=== PATIENT | male | born 1955 | race Caucasian/White ===

== ENCOUNTER 2017-10-26 23:25 | Inpatient (IN) | payer OTHER ==
[~2017-10-26] VITALS: Ht 175.3 cm; Wt 96.2 kg
[2017-10-26] MEDS ORDERED: LISI-170 PO (23:36)
[2017-10-26] MEDS ORDERED: ESOM40CA PO (23:36)
[2017-10-26 23:51] LABS: BASOPHILS # (AUTO) 0.04 x10^3/uL (0-0.1); BASOPHILS % (AUTO) 1 % (0-1); EOSINOPHILS # (AUTO) 0.12 x10^3/uL (0-0.4); EOSINOPHILS % (AUTO) 2 % (1-7); LYMPHOCYTES # (AUTO) 2.06 x10^3/uL (1-3.4); LYMPHOCYTES % (AUTO) 34 % (22-44); MD NO; MEAN CORPUSCULAR HEMOGLOBIN 31.5 pg (27.5-34.5); MEAN CORPUSCULAR HGB CONC 34.3 g/dL (33.2-36.2); MEAN CORPUSCULAR VOLUME 91.7 fL (81-97); MEAN PLATELET VOLUME 7.4 fL (7.4-10.4); MONOCYTES # (AUTO) 0.37 x10^3/uL (0.2-0.8); MONOCYTES % (AUTO) 6 % (2-9); NEUTROPHILS # (AUTO) 3.47 x10^3/uL (1.8-6.8); NEUTROPHILS % (AUTO) 57 % (42-75); PLATELET COUNT 199 x10^3/uL (130-400); RED BLOOD COUNT 5.01 x10^6/uL (4.38-5.82)
[2017-10-27] MEDS ORDERED: SODIUM CHLORIDE FLUSH 10ML SYR IVF ONE
[2017-10-27 00:03] LABS: ALBUMIN 3.6 g/dL (3.4-5.0); ANION GAP 6 mmol/L (5-15); CALCIUM 8.6 mg/dL (8.5-10.1); CHLORIDE 108 mmol/L (98-107); CREATININE 1.55 mg/dL (0.7-1.3)
[2017-10-27 00:07] LABS: TROPONIN I < 0.015 ng/mL (0.000-0.045)
[2017-10-27] MEDS ORDERED: SODIUM CHLORIDE 0.9% 1,000 ML IV ONE (00:57)
[2017-10-27] MEDS ORDERED: ONDANSETRON 2MG/ML, 2ML IVPush PRN ×2 (01:00→06:30)
[2017-10-27 03:42] VITALS: BP 127/79
[2017-10-27 06:30] VITALS: BP 126/74
[2017-10-27] MEDS ORDERED: ACETAMINOPHEN 325 MG TABLET PO PRN (06:30)
[2017-10-27] MEDS ORDERED: PROMETHAZINE 25 MG/ML, 1ML IM PRN (06:30)
[2017-10-27] MEDS ORDERED: DOCUSATE 100 MG CAPSULE PO PRN (06:30)
[2017-10-27] MEDS ORDERED: ONDANSETRON ODT 4 MG PO PRN (06:30)
[2017-10-27] MEDS ORDERED: BISACODYL 10 MG SUPP PR PRN (06:30)
[2017-10-27] MEDS ORDERED: SODIUM CHLORIDE 0.9% 1,000 ML IV SCH (07:00)
[2017-10-27 08:20] LABS: BASOPHILS # (AUTO) 0.02 x10^3/uL (0-0.1); BASOPHILS % (AUTO) 0 % (0-1); EOSINOPHILS # (AUTO) 0.11 x10^3/uL (0-0.4); EOSINOPHILS % (AUTO) 2 % (1-7); LYMPHOCYTES # (AUTO) 1.78 x10^3/uL (1-3.4); LYMPHOCYTES % (AUTO) 28 % (22-44); MD NO; MEAN CORPUSCULAR HGB CONC 33.9 g/dL (33.2-36.2); MEAN CORPUSCULAR VOLUME 91.7 fL (81-97); MEAN PLATELET VOLUME 7.4 fL (7.4-10.4); MONOCYTES # (AUTO) 0.38 x10^3/uL (0.2-0.8); MONOCYTES % (AUTO) 6 % (2-9); NEUTROPHILS # (AUTO) 4.09 x10^3/uL (1.8-6.8); NEUTROPHILS % (AUTO) 64 % (42-75); PLATELET COUNT 204 x10^3/uL (130-400); RED BLOOD COUNT 5.05 x10^6/uL (4.38-5.82); RED CELL DISTRIBUTION WIDTH 12.9 % (9.4-14.8)
[2017-10-27 08:32] LABS: ALBUMIN 3.5 g/dL (3.4-5.0); ANION GAP 4 mmol/L (5-15); CALCIUM 8.5 mg/dL (8.5-10.1); CHLORIDE 111 mmol/L (98-107)
[2017-10-27 08:42] LABS: ALANINE AMINOTRANSFERASE 36 U/L (12-78); ALKALINE PHOSPHATASE 55 U/L (45-117); BILIRUBIN,TOTAL 0.7 mg/dL (0.2-1.0); CHOL/HDL RATIO 5.5; CHOLESTEROL, TOTAL 143 mg/dL (140-239); CREATININE 1.39 mg/dL (0.7-1.3); HDL CHOL % 18 % (26-37); HDL CHOLESTEROL (DIRECT) 26 mg/dL (40-60); LDL CHOLESTEROL,CALCULATED 91 mg/dL (54-169); LDL/HDL RATIO 3.5 (0.5-3.0); THYROID STIMULATING HORMONE 0.654 mIU/L (0.358-3.740); TOTAL PROTEIN 6.8 g/dL (6.4-8.2); TRIGLYCERIDES 131 mg/dL (50-200); VLDL CHOLESTEROL 26 mg/dL (0-25)
[2017-10-27 08:47] LABS: HEMOGLOBIN A1C 5.8 % (4.2-6.3)
[2017-10-27] MEDS: SODIUM CHLORIDE 0.9% 1,000 ML IV SCH ×3 (08:54→21:42)
[2017-10-27] MEDS: ENOXAPARIN 40 MG/0.4 ML SQ SCH (08:54)
[2017-10-27] MEDS: PANTOPROZOLE 40MG TABLET PO SCH (08:54)
[2017-10-27] MEDS: ASPIRIN 325 MG TABLET EC PO SCH (08:55)
[2017-10-27] MEDS: METOPROLOL TARTRATE 25 MG TABLET PO SCH ×2 (08:55→20:00)
[2017-10-27 13:33] LABS: TROPONIN I < 0.015 ng/mL (0.000-0.045)
[2017-10-27 15:07] VITALS: BP 110/76
[2017-10-27 19:43] VITALS: BP 114/68
[2017-10-28 02:34] VITALS: BP 150/60
[2017-10-28 02:42] LABS: MICROSCOPIC NOT IND
[2017-10-28 02:45] LABS: CULTURE INDICATED? NO
[2017-10-28] MEDS: SODIUM CHLORIDE 0.9% 1,000 ML IV SCH (05:44)
[2017-10-28] MEDS: ASPIRIN 325 MG TABLET EC PO SCH (05:44)
[2017-10-28 05:50] LABS: ANION GAP 6 mmol/L (5-15); CALCIUM 7.9 mg/dL (8.5-10.1); CHLORIDE 113 mmol/L (98-107)
[2017-10-28 05:52] LABS: CREATININE 1.39 mg/dL (0.7-1.3)
[2017-10-28 06:17] LABS: HEMOGLOBIN A1C 5.7 % (4.2-6.3)
[2017-10-28] MEDS: METOPROLOL TARTRATE 25 MG TABLET PO SCH (07:30)
[2017-10-28] MEDS: PANTOPROZOLE 40MG TABLET PO SCH (07:30)
[2017-10-28] MEDS: ENOXAPARIN 40 MG/0.4 ML SQ SCH (07:30)
[2017-10-28 07:33] VITALS: BP 120/71
[2017-10-28] MEDS ORDERED: REGADENOSON 0.4 MG/5 ML SYRINGE ONE (08:29)
[2017-10-28 13:17] VITALS: BP 127/79
[2017-10-28] MEDS ORDERED: HYDR-3342 PO (15:00)
[2017-10-28] MEDS ORDERED: METO25TA35 PO (15:00)
[2017-10-28] MEDS ORDERED: ASPI-650 PO (15:01)
[2017-10-28] MEDS ORDERED: SIMV40TA PO (15:03)
== END 2017-10-28 18:33 | disposition home or self-care (01) | DRG 682 ==
LOC: ED 23:50 → EDIP 10-27 00:58 → 5SO 10-27 01:34
PROVIDERS: ADMIT Surgery; ATTEND Internal Medicine
DX: N17.9 Acute kidney failure, unspecified (principal); G93.40 Encephalopathy, unspecified; N18.3 Chronic kidney disease, stage 3 (moderate); E78.5 Hyperlipidemia, unspecified; I48.2 Chronic atrial fibrillation; I12.9 Hypertensive chronic kidney disease with stage 1 through stage 4 chronic kidney disease, or unspecified chronic kidney disease; I48.0 Paroxysmal atrial fibrillation; K21.9 Gastro-esophageal reflux disease without esophagitis; I45.10 Unspecified right bundle-branch block; R73.9 Hyperglycemia, unspecified; Z88.0 Allergy status to penicillin; Z79.01 Long term (current) use of anticoagulants
CPT/HCPCS: 36415; 70450; 78452; 80048; 80053; 80061; 81003; 82040; 83036; 83735; 84100; 84443; 84484; 85025; 93005; 93017; 93306; 93880; 99285; J1650; J2785; A9502; C9898; J7030

== ENCOUNTER 2017-11-07 09:02 | Day surgery (SDC) | payer OTHER ==
[~2017-11-07] VITALS: Ht 175.3 cm; Wt 93.2 kg
[~2017-11-07 09:02] MED LIST: ASPI-650 PO; ESOM40CA PO; HYDR-3342 PO; LISI-170 PO; METO25TA35 PO; SIMV40TA PO
[2017-11-07] MEDS ORDERED: LIDOCAINE/PF 1%-EPI 1:200K, 30 ML ONE (09:23)
[2017-11-07 09:26] VITALS: BP 134/70
[2017-11-07] MEDS ORDERED: METOPROLOL TARTRATE 25 MG TABLET PO SCH (18:00)
[2017-11-07] MEDS ORDERED: SIMVASTATIN 40 MG TABLET PO SCH (21:00)
[2017-11-08] MEDS ORDERED: ASPIRIN 325 MG TABLET EC PO SCH (06:00)
[2017-11-08] MEDS ORDERED: TEMPLATE NON-FORMULARY MED. (Esomeprazole Magnesium** (Nexium**) 40 MG) PO SCH (09:00)
== END 2017-11-07 11:00 | disposition home or self-care (01) ==
LOC: CACL 09:02
PROVIDERS: ATTEND Internal Medicine Cardiovascular Disease
DX: R55 Syncope and collapse (principal); Z88.0 Allergy status to penicillin; I48.91 Unspecified atrial fibrillation; Z79.899 Other long term (current) drug therapy; I45.19 Other right bundle-branch block
CPT/HCPCS: 33282; C1764; J3490

== ENCOUNTER → 2018-07-22 | Outpatient (CLI) | payer OTHER | END | disposition home or self-care (01) | LOC: RAD 10:55 | PROVIDERS: ATTEND Family Medicine | DX: R06.00 Dyspnea, unspecified (principal) | CPT/HCPCS: 71046 ==

== ENCOUNTER → 2018-08-17 | Outpatient (CLI) | payer OTHER ==
[~2018-08-17] MED LIST changes: +FENTANYL PF 100 MCG/2ML ONE; +FLUMAZENIL 0.1 MG/1 ML, 5ML ONE; +MIDAZOLAM 1 MG/ML, 5ML ONE; +NALOXONE 1 MG/ML, 2ML ONE
== END | disposition home or self-care (01) ==
LOC: RAD 06:37
PROVIDERS: ATTEND Nurse Practitioner
DX: M47.896 Other spondylosis, lumbar region (principal); M47.892 Other spondylosis, cervical region; M48.061 Spinal stenosis, lumbar region without neurogenic claudication; M51.26 Other intervertebral disc displacement, lumbar region; M48.02 Spinal stenosis, cervical region; G95.89 Other specified diseases of spinal cord
CPT/HCPCS: 72050; 72110; 72141; 72148; 99156; 99157; J2250; J3010; J2310

== ENCOUNTER → 2018-10-01 | Outpatient (CLI) | payer OTHER ==
[~2018-10-01] MED LIST changes: -FENTANYL PF 100 MCG/2ML ONE; -FLUMAZENIL 0.1 MG/1 ML, 5ML ONE; -MIDAZOLAM 1 MG/ML, 5ML ONE; -NALOXONE 1 MG/ML, 2ML ONE
== END | disposition home or self-care (01) ==
LOC: CFH 15:03
PROVIDERS: ATTEND Neurological Surgery
DX: M51.36 Other intervertebral disc degeneration, lumbar region (principal); M43.23 Fusion of spine, cervicothoracic region
CPT/HCPCS: 72082; 72131

== ENCOUNTER → 2018-10-14 | Outpatient (CLI) | payer OTHER ==
[~2018-10-14] MED LIST changes: +FENTANYL PF 100 MCG/2ML ONE; +FLUMAZENIL 0.1 MG/1 ML, 5ML ONE; +MIDAZOLAM 1 MG/ML, 5ML ONE; +NALOXONE 1 MG/ML, 2ML ONE
== END | disposition home or self-care (01) ==
LOC: RAD 08:10
PROVIDERS: ATTEND Neurological Surgery
DX: M51.34 Other intervertebral disc degeneration, thoracic region (principal); M48.04 Spinal stenosis, thoracic region
CPT/HCPCS: 72128; 72146; 99156; 99157; J2250; J3010; J2310

== ENCOUNTER → 2019-01-06 | Outpatient (CLI) | payer OTHER ==
[~2019-01-06] MED LIST changes: -FENTANYL PF 100 MCG/2ML ONE; -FLUMAZENIL 0.1 MG/1 ML, 5ML ONE; -MIDAZOLAM 1 MG/ML, 5ML ONE; -NALOXONE 1 MG/ML, 2ML ONE
== END | disposition home or self-care (01) ==
LOC: CFH 11:18
PROVIDERS: ATTEND Family Medicine
DX: M81.0 Age-related osteoporosis without current pathological fracture (principal); Z88.0 Allergy status to penicillin
CPT/HCPCS: 77080

== ENCOUNTER 2019-04-18 20:09 | Emergency (ER) | payer OTHER ==
[~2019-04-18] VITALS: Ht 175.3 cm; Wt 100.0 kg
[2019-04-18] MEDS ORDERED: LISI-167 PO (20:18)
[2019-04-18] MEDS ORDERED: RIVA20TA PO (20:18)
--- NOTE | 2019-04-18 20:20 | NUR ---
PT TO ED FOR NEAR SYNCOPAL EPISODE WHILE EATING DINNER FOLLOWED BY VOMITING. PT DENIES NAUSEA AND CP AT THIS TIME. PT CONNECTED TO MONITORS. VSS. IV ESTABLISHED EN ROUTE. AWAITING EDMD ASSESSMENT.
[2019-04-18] MEDS ORDERED: ONDANSETRON 2MG/ML, 2ML ONE (20:47)
--- NOTE | 2019-04-18 20:50 | NUR ---
PT RESTING IN ROOM WITH AT BS. VSS. PT MEDICATED PER MAR. NO NEEDS EXPRESSED. CALL LIGHT WITHIN REACH. AWAITING CXR AND LABS.
[2019-04-18] MEDS ORDERED: SODIUM CHLORIDE 0.9% 1,000ML IVBOLUS ONE (21:00)
[2019-04-18] MEDS ORDERED: ONDANSETRON 2MG/ML, 2ML IVPush ONE (21:00)
[2019-04-18 21:12] LABS: BASOPHILS # (AUTO) 0.06 x10^3/uL (0-0.1); BASOPHILS % (AUTO) 1 % (0-1); EOSINOPHILS % (AUTO) 2 % (1-7); LYMPHOCYTES # (AUTO) 1.66 x10^3/uL (1-3.4); LYMPHOCYTES % (AUTO) 28 % (22-44); MD NO; MEAN CORPUSCULAR HGB CONC 33.4 g/dL (33.2-36.2); MEAN CORPUSCULAR VOLUME 95.7 fL (81-97); MEAN PLATELET VOLUME 7.4 fL (7.4-10.4); MONOCYTES # (AUTO) 0.39 x10^3/uL (0.2-0.8); MONOCYTES % (AUTO) 7 % (2-9); NEUTROPHILS # (AUTO) 3.67 x10^3/uL (1.8-6.8); NEUTROPHILS % (AUTO) 62 % (42-75); PLATELET COUNT 186 x10^3/uL (130-400); RED BLOOD COUNT 4.48 x10^6/uL (4.38-5.82); RED CELL DISTRIBUTION WIDTH 13.1 % (9.4-14.8)
[2019-04-18 21:22] LABS: ALBUMIN 3.4 g/dL (3.4-5.0); ANION GAP 2 mmol/L (5-15); CALCIUM 8.2 mg/dL (8.5-10.1); CHLORIDE 112 mmol/L (98-107); CREATININE 1.89 mg/dL (0.7-1.3)
[2019-04-18 21:25] LABS: TROPONIN I < 0.015 ng/mL (0.000-0.045)
--- NOTE | 2019-04-18 21:30 | NUR ---
all results back at this time. chart up for recheck.
[2019-04-18 22:04] VITALS: BP 125/51
--- NOTE | 2019-04-18 22:05 | NUR ---
PT RESTING IN ROOM WITH AT BS. VSS. NO NEEDS EXPRESSED. CALL LIGHT WITHIN REACH. REPORT TO TONEY CASTELLANO.
--- NOTE | 2019-04-18 22:15 | NUR ---
PT AMBULATED IN HALLWAY, DENIES ANY DIZZYNESS OR NAUSEA AT THIS TIME.
== END 2019-04-18 23:11 | disposition home or self-care (01) ==
LOC: ED 21:18
DX: R55 Syncope and collapse (principal); R11.10 Vomiting, unspecified; I12.9 Hypertensive chronic kidney disease with stage 1 through stage 4 chronic kidney disease, or unspecified chronic kidney disease; N18.3 Chronic kidney disease, stage 3 (moderate); I48.91 Unspecified atrial fibrillation
CPT/HCPCS: 36415; 71045; 80048; 82040; 83880; 84484; 85025; 93005; 96361; 96374; 99284; J2405; J7030

== ENCOUNTER 2019-08-25 11:06 | Inpatient (IN) | payer OTHER ==
[~2019-08-25] VITALS: Ht 177.8 cm; Wt 96.9 kg
[~2019-08-25 11:06] MED LIST changes: +LISI-167 PO; +RIVA20TA PO
--- NOTE | 2019-08-25 11:29 | NUR ---
64YO MALE COMES IN FROM HOME. PT HAD SPINAL SX Jul. PT HAS BEEN HOME SINCE AUG 18. PT AND STATE HE WAS DOING WELL AT HOME WITH HEALING AND AMBULATING. HOWEVER THE PAST TWO DAYS PT HAS NOT HAD DESIRE TO EAT AND HAS BEEN FEELING SHORT OF BREATH WITH AN IMPENDING DOOM FEELING. PT HAS BEEN USING 2L NC DURING THE DAY BECAUSE HE FEELS LIKE HE IS NOT GETTING ENOUGH AIR. RA SAT 95%. PT AND REPORT NEEDING 7 TRANSFUSIONS AFTER HIS SX. PT CONNECTED TO ALL MONITORING AT BEDSIDE CALL LIGHT WITHIN REACH. PT EXPRESSES NO FURTHER NEEDS AT THIS TIME.
[2019-08-25 12:23] LABS: BASOPHILS # (AUTO) 0.04 x10^3/uL (0-0.1); BASOPHILS % (AUTO) 0 % (0-1); EOSINOPHILS # (AUTO) 0.02 x10^3/uL (0-0.4); EOSINOPHILS % (AUTO) 0 % (1-7); LYMPHOCYTES # (AUTO) 1.13 x10^3/uL (1-3.4); LYMPHOCYTES % (AUTO) 11 % (22-44); MD NO; MEAN CORPUSCULAR HEMOGLOBIN 30.4 pg (27.5-34.5); MEAN CORPUSCULAR HGB CONC 32.8 g/dL (33.2-36.2); MEAN CORPUSCULAR VOLUME 92.6 fL (81-97); MEAN PLATELET VOLUME 6.5 fL (7.4-10.4); MONOCYTES # (AUTO) 1.02 x10^3/uL (0.2-0.8); MONOCYTES % (AUTO) 10 % (2-9); NEUTROPHILS # (AUTO) 8.38 x10^3/uL (1.8-6.8); NEUTROPHILS % (AUTO) 79 % (42-75); PLATELET COUNT 444 x10^3/uL (130-400); RED BLOOD COUNT 3.94 x10^6/uL (4.38-5.82); RED CELL DISTRIBUTION WIDTH 14.1 % (9.4-14.8)
[2019-08-25 12:34] LABS: ALANINE AMINOTRANSFERASE 24 U/L (12-78); ALBUMIN 2.6 g/dL (3.4-5.0); CALCIUM 8.7 mg/dL (8.5-10.1); CREATININE 1.46 mg/dL (0.7-1.3)
[2019-08-25 12:36] LABS: ALKALINE PHOSPHATASE 125 U/L (45-117); BILIRUBIN,TOTAL 1.1 mg/dL (0.2-1.0); TOTAL PROTEIN 7.5 g/dL (6.4-8.2)
[2019-08-25 12:45] LABS: ANION GAP 7 mmol/L (5-15); CHLORIDE 106 mmol/L (98-107)
--- NOTE | 2019-08-25 12:55 | NUR ---
PT EDUCATED ON NEED FOR URINE SAMPLE. PT STATES HE WILL TRY FOR US SOON
--- NOTE | 2019-08-25 13:16 | NUR ---
URINE SENT TO LAB
[2019-08-25 13:27] LABS: MICROSCOPIC INDICATED
[2019-08-25 13:40] LABS: CULTURE INDICATED? NO
--- NOTE | 2019-08-25 13:52 | NUR ---
AT BEDSIDE TO REASSESS PT
--- NOTE | 2019-08-25 13:53 | NUR ---
PT CONTINUES TO HAVE COMPLAINT OF ABD DISCOMFORT, MD UPDATED, ADDITIONAL ORDERS FROM . IV STARTED FOR CT W/ CONTRAST
[2019-08-25] MEDS ORDERED: SODIUM CHLORIDE 0.9% 1,000ML IVBOLUS ONE (14:00)
[2019-08-25] MEDS ORDERED: ONDANSETRON 2MG/ML, 2ML IVPush ONE (14:00)
[2019-08-25] MEDS ORDERED: FAMOTIDINE 20 MG/2 ML IV ONE (14:00)
[2019-08-25] MEDS ORDERED: SODIUM CHLORIDE FLUSH 10ML SYR IVF ONE (14:00)
[2019-08-25] MEDS ORDERED: KETOROLAC 30 MG/1 ML IVPush ONE (14:00)
--- NOTE | 2019-08-25 14:18 | NUR ---
PT TO CT
[2019-08-25] MEDS ORDERED: ONDANSETRON 2MG/ML, 2ML ONE (14:20)
[2019-08-25] MEDS ORDERED: KETOROLAC 30 MG/1 ML ONE (14:20)
[2019-08-25] MEDS ORDERED: FAMOTIDINE 20 MG/2 ML ONE (14:21)
[2019-08-25] MEDS ORDERED: OMNIPAQUE 350 MG/ML, 100ML BOTTLE ONE (14:29)
[2019-08-25] MEDS ORDERED: MELA5LIQ PO (14:33)
[2019-08-25] MEDS ORDERED: CLIN300C8 PO (14:33)
[2019-08-25] MEDS ORDERED: METO50TA82 PO (14:33)
[2019-08-25] MEDS ORDERED: GABA800T5 PO (14:33)
[2019-08-25] MEDS ORDERED: LISI-167 PO (14:33)
[2019-08-25] MEDS ORDERED: TRIA10.8 NAS (14:33)
[2019-08-25] MEDS ORDERED: TAMS-11 PO (14:33)
--- NOTE | 2019-08-25 14:42 | NUR ---
PT MEDICATED PER MAR
--- NOTE | 2019-08-25 15:31 | NUR ---
HOSPITALIST AT BEDSIDE TO ADMIT PT
--- NOTE | 2019-08-25 15:36 | NUR ---
THROUGHPUT: [facility] ([facility]) DECLINED TRANSFER OF PT. EMAL SENT, PSN FAXED & PLACED IN FOLDER WITH FAX RECEIPT.
[2019-08-25] MEDS ORDERED: morphine SULFATE 10 MG/ML, 1ML IVPush PRN (16:00)
[2019-08-25] MEDS ORDERED: ONDANSETRON ODT 4 MG PO PRN (16:00)
[2019-08-25] MEDS ORDERED: PROMETHAZINE 25 MG/ML, 1ML IM PRN (16:00)
[2019-08-25] MEDS ORDERED: hydrALAzine 20 MG/ML, 1ML IVPush PRN (16:00)
[2019-08-25] MEDS ORDERED: TRAZODONE 50MG TABLET PO PRN (16:00)
--- NOTE | 2019-08-25 16:22 | NUR ---
BREAK RN: PT LAYING ON GURNEY. NO ACUTE DISTRESS NOTED. PORTABLE CXR COMPLETED. PT AWARE OF WAITING FOR ROOM ASSIGNMENT. NO NEEDS EXPRESSED AT THIS TIME.
--- NOTE | 2019-08-25 16:40 | NUR ---
REQUEST SENT TO PHARMACY FOR D5 .49NS
[2019-08-25] MEDS ORDERED: CLINDAMYCIN 300 MG CAPSULE ONE (16:43)
[2019-08-25] MEDS: CLINDAMYCIN 300 MG CAPSULE PO SCH ×2 (16:45→22:02)
--- NOTE | 2019-08-25 16:48 | NUR ---
PT MEDICATED PER DEC. PT REPOSITIONED SELF AND STATES HE FEELS LESS PRESSURE IN HIS ABD AND FEELS A BIT BETTER THAN BEFORE.
--- NOTE | 2019-08-25 17:25 | NUR ---
REPORT CALLED TO MIRIAM ZIEGLER. ALL QUESTIONS ADDRESSED. PT READY FOR TRANSPORT
[2019-08-25] MEDS: D5%-0.45NACL+KCL 20MEQ 1,000 ML IV SCH (17:42)
[2019-08-25 18:30] VITALS: BP 126/77
[2019-08-25] MEDS: POLYETHYLENE GLYCOL 17 GM PACKET PO SCH (18:53)
[2019-08-25] MEDS: BACLOFEN 10 MG TABLET PO PRN (19:44)
[2019-08-25] MEDS: ACETAMINOPHEN 325 MG TABLET PO PRN (19:46)
[2019-08-25] MEDS: FLUTICASONE NASAL SPRAY 16GM NAS SCH (21:00)
[2019-08-25] MEDS: DOCUSATE 100 MG CAPSULE PO SCH (22:02)
[2019-08-25] MEDS: SIMVASTATIN 40 MG TABLET PO SCH (22:02)
[2019-08-25] MEDS: MELATONIN 5 MG TABLET PO SCH (22:02)
[2019-08-25] MEDS: FAMOTIDINE 20 MG TABLET PO SCH (22:02)
[2019-08-25] MEDS: METOPROLOL TARTRATE 50 MG TABLET PO SCH (22:03)
[2019-08-26 02:00] VITALS: BP 106/68
[2019-08-26] MEDS: D5%-0.45NACL+KCL 20MEQ 1,000 ML IV SCH ×2 (04:15→21:57)
[2019-08-26] MEDS: BACLOFEN 10 MG TABLET PO PRN ×2 (04:20→17:06)
[2019-08-26] MEDS: ACETAMINOPHEN 325 MG TABLET PO PRN ×2 (04:20→15:46)
[2019-08-26 05:23] LABS: BASOPHILS # (AUTO) 0.05 x10^3/uL (0-0.1); BASOPHILS % (AUTO) 1 % (0-1); EOSINOPHILS # (AUTO) 0.11 x10^3/uL (0-0.4); EOSINOPHILS % (AUTO) 1 % (1-7); LYMPHOCYTES # (AUTO) 0.93 x10^3/uL (1-3.4); LYMPHOCYTES % (AUTO) 10 % (22-44); MD NO; MEAN CORPUSCULAR HEMOGLOBIN 31.2 pg (27.5-34.5); MEAN CORPUSCULAR HGB CONC 33.3 g/dL (33.2-36.2); MEAN CORPUSCULAR VOLUME 93.6 fL (81-97); MEAN PLATELET VOLUME 6.4 fL (7.4-10.4); MONOCYTES # (AUTO) 0.85 x10^3/uL (0.2-0.8); MONOCYTES % (AUTO) 9 % (2-9); NEUTROPHILS # (AUTO) 7.75 x10^3/uL (1.8-6.8); NEUTROPHILS % (AUTO) 80 % (42-75); PLATELET COUNT 359 x10^3/uL (130-400); RED BLOOD COUNT 3.44 x10^6/uL (4.38-5.82); RED CELL DISTRIBUTION WIDTH 13.8 % (9.4-14.8)
[2019-08-26 05:38] LABS: ALBUMIN 2.2 g/dL (3.4-5.0); ANION GAP 5 mmol/L (5-15); CHLORIDE 106 mmol/L (98-107)
[2019-08-26 05:52] LABS: ALANINE AMINOTRANSFERASE 20 U/L (12-78); ALKALINE PHOSPHATASE 107 U/L (45-117); BILIRUBIN,TOTAL 0.7 mg/dL (0.2-1.0); CREATININE 1.41 mg/dL (0.7-1.3); TOTAL PROTEIN 6.4 g/dL (6.4-8.2)
[2019-08-26] MEDS: ONDANSETRON 2MG/ML, 2ML IVPush PRN (07:15)
[2019-08-26] MEDS: POLYETHYLENE GLYCOL 17 GM PACKET PO SCH ×3 (07:42→21:59)
[2019-08-26 08:33] VITALS: BP 101/59
[2019-08-26] MEDS: METOPROLOL TARTRATE 50 MG TABLET PO SCH ×2 (09:41→21:59)
[2019-08-26] MEDS: TAMSULOSIN 0.4 MG CAP.ER.24H PO SCH (09:41)
[2019-08-26] MEDS: FAMOTIDINE 20 MG TABLET PO SCH ×2 (09:41→21:58)
[2019-08-26] MEDS: PANTOPROZOLE 40MG TABLET PO SCH (09:41)
[2019-08-26] MEDS: DOCUSATE 100 MG CAPSULE PO SCH ×2 (09:41→21:58)
[2019-08-26] MEDS: CLINDAMYCIN 300 MG CAPSULE PO SCH ×4 (09:41→21:58)
[2019-08-26 12:11] LABS: TROPONIN I 0.061 ng/mL (0.000-0.045)
[2019-08-26 14:49] VITALS: BP 90/55
[2019-08-26 15:50] VITALS: BP 132/72
[2019-08-26 18:28] LABS: TROPONIN I 0.063 ng/mL (0.000-0.045)
[2019-08-26 19:34] VITALS: BP 107/60
[2019-08-26] MEDS: FLUTICASONE NASAL SPRAY 16GM NAS SCH (21:58)
[2019-08-26] MEDS: MELATONIN 5 MG TABLET PO SCH (21:58)
[2019-08-26] MEDS: SIMVASTATIN 40 MG TABLET PO SCH (21:58)
[2019-08-27] MEDS: ACETAMINOPHEN 325 MG TABLET PO PRN ×3 (00:11→15:57)
[2019-08-27 01:41] VITALS: BP 108/68
[2019-08-27] MEDS: CLINDAMYCIN 300 MG CAPSULE PO SCH ×4 (06:30→21:16)
[2019-08-27 08:00] VITALS: BP 120/61
[2019-08-27] MEDS: PANTOPROZOLE 40MG TABLET PO SCH (09:09)
[2019-08-27] MEDS: METOPROLOL TARTRATE 50 MG TABLET PO SCH ×2 (09:09→21:15)
[2019-08-27] MEDS: FAMOTIDINE 20 MG TABLET PO SCH ×2 (09:09→21:17)
[2019-08-27] MEDS: DOCUSATE 100 MG CAPSULE PO SCH ×2 (09:09→21:18)
[2019-08-27] MEDS: POLYETHYLENE GLYCOL 17 GM PACKET PO SCH ×2 (09:10→21:18)
[2019-08-27] MEDS: TAMSULOSIN 0.4 MG CAP.ER.24H PO SCH (09:10)
[2019-08-27] MEDS: D5%-0.45NACL+KCL 20MEQ 1,000 ML IV SCH ×2 (09:26→21:14)
[2019-08-27] MEDS: ONDANSETRON 2MG/ML, 2ML IVPush PRN (09:32)
[2019-08-27 10:53] LABS: BASOPHILS # (AUTO) 0.03 x10^3/uL (0-0.1); BASOPHILS % (AUTO) 0 % (0-1); EOSINOPHILS # (AUTO) 0.11 x10^3/uL (0-0.4); EOSINOPHILS % (AUTO) 1 % (1-7); LYMPHOCYTES # (AUTO) 0.57 x10^3/uL (1-3.4); LYMPHOCYTES % (AUTO) 6 % (22-44); MD NO; MEAN CORPUSCULAR HEMOGLOBIN 31.1 pg (27.5-34.5); MEAN CORPUSCULAR HGB CONC 33.1 g/dL (33.2-36.2); MEAN CORPUSCULAR VOLUME 94.1 fL (81-97); MEAN PLATELET VOLUME 6.9 fL (7.4-10.4); MONOCYTES % (AUTO) 6 % (2-9); NEUTROPHILS # (AUTO) 8.75 x10^3/uL (1.8-6.8); NEUTROPHILS % (AUTO) 87 % (42-75); PLATELET COUNT 312 x10^3/uL (130-400); RED BLOOD COUNT 3.21 x10^6/uL (4.38-5.82); RED CELL DISTRIBUTION WIDTH 14.2 % (9.4-14.8)
[2019-08-27 11:02] LABS: ALANINE AMINOTRANSFERASE 20 U/L (12-78); ALBUMIN 2.1 g/dL (3.4-5.0); ANION GAP 5 mmol/L (5-15); CHLORIDE 106 mmol/L (98-107); CREATININE 1.49 mg/dL (0.7-1.3)
[2019-08-27 11:04] LABS: ALKALINE PHOSPHATASE 124 U/L (45-117); BILIRUBIN,TOTAL 1.4 mg/dL (0.2-1.0); TOTAL PROTEIN 6.8 g/dL (6.4-8.2)
[2019-08-27] MEDS: BACLOFEN 10 MG TABLET PO PRN (12:09)
[2019-08-27 14:08] VITALS: BP 102/61
[2019-08-27] MEDS ORDERED: MAGNESIUM HYDROXIDE 8%, 30ML UDC PO PRN (15:30)
[2019-08-27] MEDS ORDERED: POLYETHYLENE GLYCOL 17 GM PACKET PO PRN (15:30)
[2019-08-27] MEDS ORDERED: MAGNESIUM CITRATE 300ML ORAL SOL PO PRN (15:30)
[2019-08-27] MEDS: LACTOBACILLUS CHEW TABLET PO SCH ×2 (15:57→21:16)
[2019-08-27 20:04] VITALS: BP 109/63
[2019-08-27] MEDS: FLUTICASONE NASAL SPRAY 16GM NAS SCH (21:14)
[2019-08-27] MEDS: MELATONIN 5 MG TABLET PO SCH (21:15)
[2019-08-27] MEDS: SIMVASTATIN 40 MG TABLET PO SCH (21:17)
[2019-08-28 01:31] VITALS: BP 93/69
[2019-08-28 05:15] LABS: BASOPHILS # (AUTO) 0.04 x10^3/uL (0-0.1); BASOPHILS % (AUTO) 0 % (0-1); EOSINOPHILS # (AUTO) 0.01 x10^3/uL (0-0.4); EOSINOPHILS % (AUTO) 0 % (1-7); LYMPHOCYTES # (AUTO) 0.57 x10^3/uL (1-3.4); LYMPHOCYTES % (AUTO) 6 % (22-44); MD NO; MEAN CORPUSCULAR HEMOGLOBIN 30.5 pg (27.5-34.5); MEAN CORPUSCULAR HGB CONC 32.8 g/dL (33.2-36.2); MEAN CORPUSCULAR VOLUME 93.1 fL (81-97); MEAN PLATELET VOLUME 6.6 fL (7.4-10.4); MONOCYTES # (AUTO) 0.64 x10^3/uL (0.2-0.8); MONOCYTES % (AUTO) 7 % (2-9); NEUTROPHILS # (AUTO) 7.65 x10^3/uL (1.8-6.8); NEUTROPHILS % (AUTO) 86 % (42-75); PLATELET COUNT 297 x10^3/uL (130-400); RED BLOOD COUNT 3.19 x10^6/uL (4.38-5.82); RED CELL DISTRIBUTION WIDTH 14.1 % (9.4-14.8)
[2019-08-28 05:17] LABS: ALANINE AMINOTRANSFERASE 21 U/L (12-78); ALBUMIN 2.1 g/dL (3.4-5.0); ANION GAP 5 mmol/L (5-15); CALCIUM 8.2 mg/dL (8.5-10.1); CHLORIDE 104 mmol/L (98-107); CREATININE 1.39 mg/dL (0.7-1.3)
[2019-08-28 05:20] LABS: ALKALINE PHOSPHATASE 121 U/L (45-117); BILIRUBIN,TOTAL 1.1 mg/dL (0.2-1.0); TOTAL PROTEIN 6.7 g/dL (6.4-8.2)
[2019-08-28] MEDS: D5%-0.45NACL+KCL 20MEQ 1,000 ML IV SCH ×2 (05:53→20:47)
[2019-08-28] MEDS: LACTOBACILLUS CHEW TABLET PO SCH ×4 (05:54→20:48)
[2019-08-28] MEDS: CLINDAMYCIN 300 MG CAPSULE PO SCH ×2 (05:54→11:26)
[2019-08-28] MEDS: ACETAMINOPHEN 325 MG TABLET PO PRN ×2 (05:58→17:43)
[2019-08-28 07:18] VITALS: BP 99/55
[2019-08-28 08:30] LABS: MICROSCOPIC NOT IND
[2019-08-28] MEDS: FAMOTIDINE 20 MG TABLET PO SCH ×2 (08:33→20:48)
[2019-08-28] MEDS: PANTOPROZOLE 40MG TABLET PO SCH (08:33)
[2019-08-28] MEDS: METOPROLOL TARTRATE 50 MG TABLET PO SCH ×2 (08:34→20:48)
[2019-08-28 08:35] LABS: CULTURE INDICATED? NO
[2019-08-28] MEDS: DOCUSATE 100 MG CAPSULE PO SCH ×2 (08:36→20:48)
[2019-08-28] MEDS: TAMSULOSIN 0.4 MG CAP.ER.24H PO SCH (08:37)
[2019-08-28] MEDS: POLYETHYLENE GLYCOL 17 GM PACKET PO SCH ×2 (08:37→20:49)
[2019-08-28 13:01] VITALS: BP 98/60
[2019-08-28] MEDS: MEROPENEM 1 GM in SODIUM CHLORIDE 0.9% 100 ML IV SCH ×2 (14:15→22:34)
[2019-08-28 19:04] VITALS: BP 120/63
[2019-08-28] MEDS: MELATONIN 5 MG TABLET PO SCH (20:48)
[2019-08-28] MEDS: SIMVASTATIN 40 MG TABLET PO SCH (20:48)
[2019-08-28] MEDS: FLUTICASONE NASAL SPRAY 16GM NAS SCH (22:35)
[2019-08-29 01:14] VITALS: BP 119/69
[2019-08-29 05:50] LABS: BASOPHILS # (AUTO) 0.03 x10^3/uL (0-0.1); BASOPHILS % (AUTO) 0 % (0-1); EOSINOPHILS # (AUTO) 0.01 x10^3/uL (0-0.4); EOSINOPHILS % (AUTO) 0 % (1-7); LYMPHOCYTES # (AUTO) 0.58 x10^3/uL (1-3.4); LYMPHOCYTES % (AUTO) 8 % (22-44); MD NO; MEAN CORPUSCULAR HEMOGLOBIN 30.4 pg (27.5-34.5); MEAN CORPUSCULAR HGB CONC 32.9 g/dL (33.2-36.2); MEAN CORPUSCULAR VOLUME 92.3 fL (81-97); MEAN PLATELET VOLUME 6.6 fL (7.4-10.4); MONOCYTES % (AUTO) 7 % (2-9); NEUTROPHILS # (AUTO) 6.55 x10^3/uL (1.8-6.8); NEUTROPHILS % (AUTO) 85 % (42-75); PLATELET COUNT 300 x10^3/uL (130-400); RED BLOOD COUNT 3.17 x10^6/uL (4.38-5.82); RED CELL DISTRIBUTION WIDTH 13.7 % (9.4-14.8)
[2019-08-29 06:05] LABS: ANION GAP 6 mmol/L (5-15); CHLORIDE 103 mmol/L (98-107); CREATININE 1.31 mg/dL (0.7-1.3)
[2019-08-29] MEDS: MEROPENEM 1 GM in SODIUM CHLORIDE 0.9% 100 ML IV SCH ×3 (06:18→22:50)
[2019-08-29] MEDS: LACTOBACILLUS CHEW TABLET PO SCH ×4 (06:18→21:18)
[2019-08-29] MEDS: ACETAMINOPHEN 325 MG TABLET PO PRN ×3 (06:24→22:50)
[2019-08-29 08:15] VITALS: BP 115/65
[2019-08-29] MEDS: POLYETHYLENE GLYCOL 17 GM PACKET PO SCH ×2 (08:19→21:17)
[2019-08-29] MEDS: D5%-0.45NACL+KCL 20MEQ 1,000 ML IV SCH ×2 (08:20→21:16)
[2019-08-29] MEDS: PANTOPROZOLE 40MG TABLET PO SCH (09:26)
[2019-08-29] MEDS: FAMOTIDINE 20 MG TABLET PO SCH ×2 (09:26→21:18)
[2019-08-29] MEDS: DOCUSATE 100 MG CAPSULE PO SCH ×2 (09:26→21:17)
[2019-08-29] MEDS: METOPROLOL TARTRATE 50 MG TABLET PO SCH ×2 (09:26→21:18)
[2019-08-29] MEDS: TAMSULOSIN 0.4 MG CAP.ER.24H PO SCH (09:26)
[2019-08-29 13:55] VITALS: BP 110/58
[2019-08-29 18:35] VITALS: BP 104/56
[2019-08-29] MEDS: MELATONIN 5 MG TABLET PO SCH (21:18)
[2019-08-29] MEDS: SIMVASTATIN 40 MG TABLET PO SCH (21:19)
[2019-08-29] MEDS: FLUTICASONE NASAL SPRAY 16GM NAS SCH (21:24)
[2019-08-30] VITALS (8 sets, daily range): BP systolic 78–118; BP diastolic 41–63
[2019-08-30 04:55] LABS: BASOPHILS # (AUTO) 0.04 x10^3/uL (0-0.1); BASOPHILS % (AUTO) 1 % (0-1); EOSINOPHILS # (AUTO) 0.13 x10^3/uL (0-0.4); EOSINOPHILS % (AUTO) 2 % (1-7); LYMPHOCYTES # (AUTO) 1.19 x10^3/uL (1-3.4); LYMPHOCYTES % (AUTO) 16 % (22-44); MD NO; MEAN CORPUSCULAR HEMOGLOBIN 30.8 pg (27.5-34.5); MEAN CORPUSCULAR HGB CONC 32.9 g/dL (33.2-36.2); MEAN CORPUSCULAR VOLUME 93.9 fL (81-97); MEAN PLATELET VOLUME 6.8 fL (7.4-10.4); MONOCYTES # (AUTO) 0.85 x10^3/uL (0.2-0.8); MONOCYTES % (AUTO) 11 % (2-9); NEUTROPHILS # (AUTO) 5.32 x10^3/uL (1.8-6.8); NEUTROPHILS % (AUTO) 71 % (42-75); PLATELET COUNT 320 x10^3/uL (130-400); RED BLOOD COUNT 3.41 x10^6/uL (4.38-5.82); RED CELL DISTRIBUTION WIDTH 14.3 % (9.4-14.8)
[2019-08-30 05:01] LABS: ANION GAP 5 mmol/L (5-15); CALCIUM 8.4 mg/dL (8.5-10.1); CHLORIDE 106 mmol/L (98-107)
[2019-08-30 05:02] LABS: CREATININE 1.25 mg/dL (0.7-1.3)
[2019-08-30] MEDS: LACTOBACILLUS CHEW TABLET PO SCH ×4 (06:43→20:26)
[2019-08-30] MEDS: MEROPENEM 1 GM in SODIUM CHLORIDE 0.9% 100 ML IV SCH ×2 (06:46→15:17)
[2019-08-30] MEDS: METOPROLOL TARTRATE 50 MG TABLET PO SCH ×2 (08:52→20:27)
[2019-08-30] MEDS: PANTOPROZOLE 40MG TABLET PO SCH (08:52)
[2019-08-30] MEDS: DOCUSATE 100 MG CAPSULE PO SCH ×2 (08:52→20:27)
[2019-08-30] MEDS: FAMOTIDINE 20 MG TABLET PO SCH ×2 (08:52→20:26)
[2019-08-30] MEDS: TAMSULOSIN 0.4 MG CAP.ER.24H PO SCH (08:52)
[2019-08-30] MEDS: POLYETHYLENE GLYCOL 17 GM PACKET PO SCH ×2 (08:53→20:27)
[2019-08-30] MEDS: ACETAMINOPHEN 325 MG TABLET PO PRN (16:37)
[2019-08-30] MEDS: D5%-0.45NACL+KCL 20MEQ 1,000 ML IV SCH ×2 (16:41→20:35)
[2019-08-30] MEDS ORDERED: CEFTRIAXONE PMX 2GM/50ML 50 ML IV SCH (18:30)
[2019-08-30] MEDS: MELATONIN 5 MG TABLET PO SCH (20:26)
[2019-08-30] MEDS: SIMVASTATIN 40 MG TABLET PO SCH (20:27)
[2019-08-30] MEDS: FLUTICASONE NASAL SPRAY 16GM NAS SCH (20:28)
[2019-08-31 02:00] VITALS: BP 126/67
[2019-08-31 05:33] LABS: BASOPHILS # (AUTO) 0.04 x10^3/uL (0-0.1); BASOPHILS % (AUTO) 0 % (0-1); EOSINOPHILS % (AUTO) 1 % (1-7); LYMPHOCYTES # (AUTO) 0.96 x10^3/uL (1-3.4); LYMPHOCYTES % (AUTO) 11 % (22-44); MD NO; MEAN CORPUSCULAR HEMOGLOBIN 30.3 pg (27.5-34.5); MEAN CORPUSCULAR HGB CONC 32.6 g/dL (33.2-36.2); MEAN CORPUSCULAR VOLUME 92.9 fL (81-97); MEAN PLATELET VOLUME 6.3 fL (7.4-10.4); MONOCYTES # (AUTO) 0.78 x10^3/uL (0.2-0.8); MONOCYTES % (AUTO) 9 % (2-9); NEUTROPHILS # (AUTO) 6.54 x10^3/uL (1.8-6.8); NEUTROPHILS % (AUTO) 78 % (42-75); PLATELET COUNT 341 x10^3/uL (130-400); RED BLOOD COUNT 3.38 x10^6/uL (4.38-5.82); RED CELL DISTRIBUTION WIDTH 13.8 % (9.4-14.8)
[2019-08-31] MEDS: LACTOBACILLUS CHEW TABLET PO SCH ×2 (05:40→10:59)
[2019-08-31] MEDS: D5%-0.45NACL+KCL 20MEQ 1,000 ML IV SCH (05:40)
[2019-08-31 05:53] LABS: ANION GAP 3 mmol/L (5-15); CALCIUM 8.3 mg/dL (8.5-10.1); CHLORIDE 104 mmol/L (98-107)
[2019-08-31 06:01] LABS: HCT (SEDRATE) 31.3 % (39.2-51.8)
[2019-08-31 06:03] LABS: CREATININE 1.23 mg/dL (0.7-1.3)
[2019-08-31 07:56] VITALS: BP 103/58
[2019-08-31] MEDS: PANTOPROZOLE 40MG TABLET PO SCH (08:15)
[2019-08-31] MEDS: TAMSULOSIN 0.4 MG CAP.ER.24H PO SCH (08:15)
[2019-08-31] MEDS: FAMOTIDINE 20 MG TABLET PO SCH (08:16)
[2019-08-31] MEDS ORDERED: METOPROLOL TARTRATE 25 MG TABLET PO SCH (09:00)
[2019-08-31] MEDS: BACLOFEN 10 MG TABLET PO PRN (10:58)
[2019-08-31] MEDS: DOCUSATE 100 MG CAPSULE PO SCH (10:59)
[2019-08-31] MEDS: POLYETHYLENE GLYCOL 17 GM PACKET PO SCH (10:59)
[2019-08-31] MEDS ORDERED: BACL-19 PO (11:29)
[2019-08-31] MEDS ORDERED: ACET325T26 PO (11:29)
[2019-08-31] MEDS ORDERED: METO25TA35 PO (11:29)
[2019-08-31] MEDS ORDERED: ACID1TAB7 PO (11:29)
[2019-08-31] MEDS ORDERED: CEFT2FRO2 IV (11:29)
[2019-08-31] MEDS ORDERED: DOCU100C33 PO (11:29)
[2019-08-31] MEDS ORDERED: MORP10VI10 IVPush (11:29)
[2019-08-31] MEDS ORDERED: ONDA4VIA60 IVPush (11:29)
[2019-08-31] MEDS ORDERED: CALCIUM CARBONATE 500 MG TAB.CHEW PO PRN (12:30)
[2019-08-31] MEDS ORDERED: ALUMINUM/MAG/SIMETHICONE 30 ML UDC PO PRN (12:30)
[2019-08-31 14:03] VITALS: BP 110/61
== END 2019-08-31 15:02 | disposition short-term general hospital (02) | DRG 920 ==
LOC: ED 13:23 → EDIP 15:45 → 4NE 18:00 → 5SO 08-26 10:28
PROVIDERS: ADMIT Hospitalist; ATTEND Internal Medicine
DX: T85.9XXA Unspecified complication of internal prosthetic device, implant and graft, initial encounter (principal); D68.69 Other thrombophilia; J96.11 Chronic respiratory failure with hypoxia; K56.7 Ileus, unspecified; E11.22 Type 2 diabetes mellitus with diabetic chronic kidney disease; G62.9 Polyneuropathy, unspecified; I12.9 Hypertensive chronic kidney disease with stage 1 through stage 4 chronic kidney disease, or unspecified chronic kidney disease; I25.10 Atherosclerotic heart disease of native coronary artery without angina pectoris; I25.2 Old myocardial infarction; I45.10 Unspecified right bundle-branch block; I48.0 Paroxysmal atrial fibrillation; N18.3 Chronic kidney disease, stage 3 (moderate); N20.0 Calculus of kidney; K21.9 Gastro-esophageal reflux disease without esophagitis; Z79.01 Long term (current) use of anticoagulants; Z87.442 Personal history of urinary calculi; Z98.1 Arthrodesis status; Z99.81 Dependence on supplemental oxygen; Y83.8 Other surgical procedures as the cause of abnormal reaction of the patient, or of later complication, without mention of misadventure at the time of the procedure; Y92.89 Other specified places as the place of occurrence of the external cause; Z88.0 Allergy status to penicillin; J45.909 Unspecified asthma, uncomplicated
CPT/HCPCS: 36415; 74018; 74021; 84145; 96361; 96374; 96375; 99285; J3490; 71045; 72128; 72131; 74177; 76604; 78582; 80048; 80053; 81001; 81003; 83690; 84443; 84484; 85025; 85379; 85651; 86140; 87040; 87070; 87077; 87086; 87186; 87205; 93005; 93306; G0378; J0696; J1885; J2185; J2405; Q9967; A9540; A9558; J3480; J7030

== ENCOUNTER → 2019-11-08 | Outpatient (CLI) | payer OTHER ==
[~2019-11-08] MED LIST changes: +ACET325T26 PO; +ACID1TAB7 PO; +BACL-19 PO; +CEFT2FRO2 IV; +CLIN300C8 PO; +DOCU100C33 PO; +GABA800T5 PO; +MELA5LIQ PO; +METO50TA82 PO; +MORP10VI10 IVPush; +ONDA4VIA60 IVPush; +TAMS-11 PO; +TRIA10.8 NAS
== END | disposition home or self-care (01) ==
LOC: RAD 16:57
PROVIDERS: ATTEND Physician Assistant Surgical
DX: S33.140A Subluxation of L4/L5 lumbar vertebra, initial encounter (principal); M43.27 Fusion of spine, lumbosacral region; M43.23 Fusion of spine, cervicothoracic region; X58.XXXA Exposure to other specified factors, initial encounter; Y93.89 Activity, other specified; Y92.89 Other specified places as the place of occurrence of the external cause; Y99.8 Other external cause status; Z98.1 Arthrodesis status; Z88.0 Allergy status to penicillin
CPT/HCPCS: 72072; 72100

== ENCOUNTER 2020-01-07 07:22 | Day surgery (SDC) | payer OTHER ==
[~2020-01-07] VITALS: Ht 177.8 cm; Wt 90.0 kg
[~2020-01-07 07:22] MED LIST changes: -MELA5LIQ PO; +MELA5LIQ2 PO
[2020-01-07] MEDS ORDERED: LIDOCAINE 2%, 20ML ONE (08:34)
[2020-01-07] MEDS ORDERED: SULF-16 PEG (08:36)
[2020-01-07] MEDS ORDERED: METO50TA82 PO (08:36)
[2020-01-07] MEDS ORDERED: RIVA20TA PO (08:36)
[2020-01-07] MEDS ORDERED: PANT40GR PO (08:36)
== END 2020-01-07 09:31 | disposition home or self-care (01) ==
LOC: CACL 07:22
PROVIDERS: ATTEND Internal Medicine Cardiovascular Disease
DX: Z45.09 Encounter for adjustment and management of other cardiac device (principal); I10 Essential (primary) hypertension; Z88.0 Allergy status to penicillin
CPT/HCPCS: 33286